=== PATIENT | male | born 1985 | race Caucasian/White ===

== ENCOUNTER 2017-06-05 08:46 | Emergency (ER) | payer BC, OTHER ==
[2017-06-05] MEDS ORDERED: KETOROLAC 60 MG/2 ML VIAL IM STA (09:17)
[2017-06-05] MEDS ORDERED: diazePAM 5 MG TABLET PO STA (09:17)
--- NOTE | 2017-06-05 09:22 | ED Physician Documentation ---
History of Present Illness - Stated complaint Stated Complaint: NECK/CHEST PX 2ND TO [facility] - Chief complaint Chief Complaint: Ext Problem - Additonal information Additional information: hx from pt 31 male playing with nices and fell backward (lost balance/mechanical not syncope) and struck back of neck on floor some neck pain but more upper back spasm and some pain under his R clavicle no TROTTER no LOC no numbness or weakness no abd pain HR was in 30s when pt arrived, unable to get BP i traiage but 106 when in room , pt does not feel weak or faint, he states his HR is always "ridiculously slow " Review of Systems Constitutional: denies: Fever, Chills Cardiac: reports: Chest pain / pressure (R clavicle). denies: Palpitations Respiratory: denies: Dyspnea, Cough GI: denies: Abdominal Pain, Nausea, Vomiting Musculoskeletal: reports: Neck pain, Back pain Neurologic: denies: Focal weakness, Numbness, Headache, Head injury Endocrine: denies: Easy bruising / bleeding Immunocompromised: denies: Immunocompromised PD PAST MEDICAL HISTORY - Past Medical History Past Medical History: No - Present Medications Home Medications: Ambulatory Orders Medication Instructions Recorded Confirmed Carisoprodol [Soma] 350 mg PO Q8H PRN #15 tablet 06/05/17 Ibuprofen [Motrin] 400 mg PO Q6H PRN #30 tablet 06/05/17 Lidocaine Patch 5% [Lidoderm Patch] 1 each TOP DAILY PRN #10 patch 06/05/17 - Allergies Allergies/Adverse Reactions: Allergies Allergy/AdvReac Type Severity Reaction Status Date / Time carbamazepine [From Tegretol] Allergy Rash Verified 06/05/17 08:57 - Social History Does the pt smoke?: No Smoking Status: Never smoker PD ED PE NORMAL - Vitals Vital signs reviewed: Yes - General General: Alert and oriented X 3 - HEENT HEENT: Atraumatic - Neck Neck: No bony TTP, Other (will xray given mechanism) - Cardiac Cardiac: RRR - Respiratory Respiratory: No respiratory distress, Clear bilaterally, Other (some TTP ST inf to R clavicle but no crepitus or bruising) - Abdomen Abdomen: Soft, Non tender - Back Back: No spinal TTP, Other (soft tissue TTP and some limited ROM upper thoracic soft tissue R > L, no bruising or crepitus) - Derm Derm: Normal color Results - Vitals Vitals: Vital Signs - 24 hr 06/05/17 06/05/17 08:50 10:25 Temperature 36.5 C Heart Rate 34 L 43 L Respiratory 15 12 Rate Blood Pressure 105/51 L O2 Saturation 96 100 Oxygen O2 Source Room air - EKG (time done) 0910 Rate: Rate (enter#) Rhythm: Sinus bradycardia [place]: Normal Intervals: Normal [place] Ischemia: Normal ST segments - Rads (name of study) c spine Radiology: See rad report (neg) CXR PA lat Radiology: See rad report (neg, no pneumo, nl mediastnum, no T spine comp, nl R clavicle and ribs) PD MEDICAL DECISION MAKING - ED course ED course: pt with known baseline bradycardic, was in pain, became particualryl slow while surses were trying to start IVs, better when IV efforts ceased, suspect baseline sinus ioana + some vagal resonse imaging neg pt feeling better with meds was fine before he had a mechanical fall plan to dc if HR better HR remaind high 40s, no sx, ambulated s sx Departure - Departure Disposition: 01 Home, Self Care Clinical Impression: Back spasm, Sinus bradycardia Neck contusion Qualifiers: Encounter type: initial encounter Qualified Code(s): S10.93XA - Contusion of unspecified part of neck, initial encounter Condition: Good Instructions: ED Neck Back Pain General Follow-Up: Delvin Andrea MD [Primary Care Provider] - Prescriptions: Lidocaine Patch 5% [Lidoderm Patch] 1 each TOP DAILY PRN #10 patch PRN Reason: Pain Ibuprofen [Motrin] 400 mg PO Q6H PRN #30 tablet PRN Reason: Pain Carisoprodol [Soma] 350 mg PO Q8H PRN #15 tablet PRN Reason: muscle spasm Comments: The xrays of your cervical and thoracic spine were fine. Also no broken ribs, scapula or clavicle. I think the pain was from the muscle spasm which is a common reaction to an acute injury Your heart rate does run slow but it is a regular rhythm and is not affecting your blood pressure Check it periodically at home - 40s is fine but if you are in the 30s when you are not in pain or have an IV started, please follow up with your PMD Forms: Activity restrictions
[2017-06-05] MEDS ORDERED: KETOROLAC 60 MG/2 ML VIAL ONE (09:25)
[2017-06-05] MEDS ORDERED: diazePAM 5 MG TABLET PO ONE (09:25)
--- NOTE | 2017-06-05 09:54 | XRAY Preliminary Report ---
Exam: XR Cervical Spine 2 View IMPRESSION: Normal cervical spine radiography. [facility] SITE ID: [id number]
--- NOTE | 2017-06-05 09:55 | XRAY Preliminary Report ---
Exam: XR Chest 2 View PA/LAT IMPRESSION: Normal 2-view chest radiography. [facility] SITE ID: [id number]
--- NOTE | 2017-06-05 09:56 | XRAY Report ---
EXAM: CERVICAL SPINE RADIOGRAPHY EXAM DATE: 06/05/2017 09:34 AM. CLINICAL HISTORY: Fell backward neck and scapula pain. COMPARISONS: None. TECHNIQUE: 3 views. FINDINGS: Alignment: Normal. No spondylolisthesis or scoliosis. Bones: The cervical vertebral bodies and posterior elements are well visualized from the skull base t hrough C7-T1. No fractures or bone lesions. Disks: Normal. Disk heights are maintained. Facets: Unremarkable. Soft Tissues: Normal. No prevertebral soft tissue swelling. The visualized lung apices are clear. IMPRESSION: Normal cervical spine radiography. [facility] Referring Provider Line: [phone] SITE ID: [id number]
--- NOTE | 2017-06-05 09:57 | XRAY Report ---
EXAM: CHEST RADIOGRAPHY EXAM DATE: 06/05/2017 09:35 AM. CLINICAL HISTORY: Fell back neck and scapula pain. COMPARISON: None. TECHNIQUE: 2 views. FINDINGS: Lungs/Pleura: No focal opacities evident. No pleural effusion. No pneumothorax. Normal volumes. Mediastinum: Heart and mediastinal contours are unremarkable. Other: None. IMPRESSION: Normal 2-view chest radiography. [facility] Referring Provider Line: [phone] SITE ID: [id number]
[2017-06-05 10:26] VITALS: BP 105/51
[2017-06-05] MEDS ORDERED: LIDOCAINE PATCH 5% TOP STA (10:43)
[2017-06-05] MEDS ORDERED: LIDOCAINE PATCH 5% TOP ONE (10:45)
== END 2017-06-05 10:56 | disposition home or self-care (01) ==
LOC: ED 08:46
DX: M62.830 Muscle spasm of back (principal); R00.1 Bradycardia, unspecified; S10.93XA Contusion of unspecified part of neck, initial encounter; W18.30XA Fall on same level, unspecified, initial encounter; Y93.89 Activity, other specified
CPT/HCPCS: 71020; 72040; 96372; 99283; A9270

== ENCOUNTER 2020-05-30 14:20 | Outpatient (CLI) | payer OTHER | END 2020-05-30 14:21 | disposition home or self-care (01) | LOC: LAB 14:20 | PROVIDERS: ATTEND Physician Assistant | DX: Z11.59 Encounter for screening for other viral diseases (principal) ==